=== PATIENT | male | born 1980 | race African-American/Black ===

== ENCOUNTER 2017-08-13 19:23 | Emergency (ER) | payer MEDICAID ==
[~2017-08-13] VITALS: Ht 182.9 cm; Wt 81.0 kg
[2017-08-14 04:41] VITALS: BP 104/48
== END 2017-08-14 05:50 | disposition left against medical advice (07) ==
LOC: ER 22:07
DX: Z53.21 Procedure and treatment not carried out due to patient leaving prior to being seen by health care provider (principal)